=== PATIENT | female | born 1975 | race Caucasian/White ===

== ENCOUNTER 2017-09-27 10:27 | Emergency (ER) | payer BC ==
[~2017-09-27] VITALS: Ht 170.1 cm; Wt 127.0 kg
[~2017-09-27 10:27] MED LIST: AMOXICILLIN500 MG PO; AMOXIL250 MG/5 M PO; ATIVAN1 MG PO; AUGMENTIN 875 M1 TAB PO; AUGMENTIN 875-875 MG PO; CIPRODEX 0.3%-7.5 ML OT; CIPROFLOXACIN500 MG PO; CLARITIN10 MG PO; FIORICET 325 MG1 TAB PO; LEVOFLOXACIN500 MG PO; LOMOTIL 0.025 M1 TA1 PO; MEDROL DOSEPAK4 MG PO; NAPROSYN500 MG PO; PREDNISONE10 MG PO; ROBAXIN750 MG PO; SEPTRA DS 800 M1 TAB PO; SEROQUEL50 MG PO; TRAMADOL HCL50 MG PO; TYLENOL160 MG/5 M PO; VICODIN 5/500 505 MG PO; ZOFRAN ODT4 MG SL; ZOFRAN4 MG PO; ZOLOFT50 MG PO
[2017-09-27] MEDS ORDERED: CIPRO500 MG PO (10:40)
[2017-09-27] MEDS ORDERED: DIFLUCAN 10M10 MG/ML PO (10:40)
[2017-09-27] MEDS ORDERED: CIPRODEX 0.3%-7.5 ML OT (10:40)
== END 2017-09-27 10:49 | disposition home or self-care (01) ==
LOC: ED 10:27
DX: H60.91 Unspecified otitis externa, right ear (principal); R11.0 Nausea; Z98.890 Other specified postprocedural states

== ENCOUNTER 2018-05-16 15:51 | Emergency (ER) | payer BC ==
[~2018-05-16] VITALS: Ht 170.1 cm; Wt 158.8 kg
[~2018-05-16 15:51] MED LIST changes: +CIPRO500 MG PO; +DIFLUCAN 10M10 MG/ML PO
[2018-05-16 16:31] LABS: BILIRUBIN NEGATIVE (NEGATIVE); BLOOD 1+ (NEGATIVE); CLARITY SL CLOUDY (CLEAR); COLOR YELLOW (YELLOW); GLUCOSE NEGATIVE (NEGATIVE); KETONE NEGATIVE (NEGATIVE); LEUKO ESTERASE NEGATIVE (NEGATIVE); NITRITE NEGATIVE (NEGATIVE); SPECIFIC GRAVITY 1.015 (1.005-1.030); UROBILINOGEN 0.2 E.U./dl (0.2-1.0)
[2018-05-16 16:32] LABS: BASO % 0.2 % (0.0-1.0); EOS # 0.1 10*3/uL (0.0-0.4); EOS % 0.8 % (1.0-4.0); HEMOGLOBIN 12.4 g/dl (12.0-16.0); LYMPH # 1.1 10*3/uL (1.3-4.4); LYMPH % 9.7 % (27.0-41.0); MEAN CELL VOLUME 84.2 fl (81.0-99.0); MEAN CORPUSCULAR HGB 26.1 pg (27.0-31.0); MEAN PLATELET VOLUME 10.9 fl (9.6-12.3); MONO # 0.6 10*3/uL (0.1-1.0); MONO % 4.7 % (3.0-9.0); NEUT # 9.9 10*3/uL (2.3-7.9); PLATELET COUNT AUTOMATED 263 10*3/uL (130-400); RED BLOOD COUNT 4.75 10*6/uL (4.10-5.10); WHITE BLOOD COUNT 11.8 10*3/uL (4.8-10.8)
[2018-05-16 16:41] LABS: BACTERIA 2+; WBC 0-2 wbc/hpf (0-5)
[2018-05-16 16:42] LABS: MUCOUS TRACE
[2018-05-16 16:56] LABS: ALBUMIN 3.1 gm/dl (3.1-4.5); ALKALINE PHOSPHATASE 105 U/L (45-117); BUN 9 mg/dl (7-24); CHLORIDE 101 mmol/L (98-107); CREATININE 1.01 mg/dL (0.55-1.02); SGOT/AST 14 IU/L (3-35); SGPT/ALT 18 U/L (12-78); SODIUM 137 mmol/L (136-145); TOTAL PROTEIN 8.1 gm/dL (6.4-8.2)
[2018-05-16] MEDS ORDERED: ZOFRAN4 MG PO (18:23)
[2018-05-16] MEDS ORDERED: NAPROSYN500 MG PO (18:23)
[2018-05-16] MEDS ORDERED: CHLORZOXAZONE500 M2 PO (18:27)
== END 2018-05-16 18:38 | disposition home or self-care (01) ==
LOC: ED 15:51
PROVIDERS: Nurse Practitioner Family
DX: R10.9 Unspecified abdominal pain (principal); R31.9 Hematuria, unspecified; R19.7 Diarrhea, unspecified; R68.83 Chills (without fever)

== ENCOUNTER → 2023-04-10 | Day surgery (SDC) | payer BC ==
[~2023-04-10] VITALS: Ht 170.1 cm; Wt 128.8 kg
[~2023-04-10] MED LIST changes: +CHLORZOXAZONE500 M2 PO; +COREG3.125 MG PO; +ZESTRIL5 MG PO
[2023-04-10 11:39] VITALS: BP 151/92
[2023-04-10 12:59] VITALS: BP 128/74
[2023-04-10 13:14] VITALS: BP 150/93
[2023-04-10 13:29] VITALS: BP 144/61
== END | disposition home or self-care (01) ==
LOC: SDC 03-10 08:45
PROVIDERS: ATTEND Surgery
DX: Z12.11 Encounter for screening for malignant neoplasm of colon (principal); K64.9 Unspecified hemorrhoids; I10 Essential (primary) hypertension; F32.A Depression, unspecified; Z90.49 Acquired absence of other specified parts of digestive tract; Z98.84 Bariatric surgery status